=== PATIENT | male | born 1995 | race Caucasian/White ===

== ENCOUNTER 2018-01-28 16:38 | Emergency (ER) | payer OTHER ==
[2018-01-28] MEDS ORDERED: IPRATROPIUM/ALBUTEROL 0.5-2.5 MG/3 ML AMPUL NEB ONE (17:42)
[2018-01-28] MEDS ORDERED: LIDOCAINE 1% INJ-PF (10 MG/ML) 30 ML SDV NEB ONE (17:42)
[2018-01-28] MEDS ORDERED: AZITHROMYCIN 250 MG TABLET PO ONE (17:42)
--- NOTE | 2018-01-28 18:10 | RADIOLOGY REPORT (SQ) ---
EXAM DESCRIPTION: CHEST SINGLE VIEW COMPLETED DATE/TIME: 01/28/2018 5:57 pm REASON FOR STUDY: sob COMPARISON: 10/10/2015 EXAM PARAMETERS: NUMBER OF VIEWS: One view. TECHNIQUE: Single frontal radiographic view of the chest acquired. RADIATION DOSE: NA LIMITATIONS: None. FINDINGS: LUNGS AND PLEURA: No opacities, masses or pneumothorax. No pleural effusion. MEDIASTINUM AND HILAR STRUCTURES: No masses. Contour normal. HEART AND VASCULAR STRUCTURES: Heart normal in size. Normal vasculature. BONES: No acute findings. HARDWARE: None in the chest. OTHER: No other significant finding. IMPRESSION: NO ACUTE RADIOGRAPHIC FINDING IN THE CHEST. TECHNICAL DOCUMENTATION: JOB ID: [id number] [employer]- All Rights Reserved Reading location - IP/workstation name: [email or web address]
[2018-01-28] MEDS ORDERED: PREDNISONE 20 MG TABLET PO ONE (18:26)
[2018-01-28] MEDS ORDERED: ALBUTEROL SULFATE HFA (90 MCG/PUFF) 8 GM MDI (1 MDI/ER DISP) IH ONE (18:27)
--- NOTE | 2018-01-28 18:27 | ER Document Report ---
ED General - General Chief Complaint: Cough Stated Complaint: CHEST PAIN, COUGHING BLOOD Time Seen by Provider: 01/28/18 17:29 TRAVEL OUTSIDE OF THE [place] IN LAST 30 DAYS: No - HPI Patient complains to provider of: Cough productive sputum chest pain Notes: But states symptoms ongoing for the last 5 days. Patient states he is a smoker however stopped approximately 6 days ago. Patient denies any fevers or chills. Patient states also having some nasal congestion. Patient denies any recent travel or antibiotics. Resting comfortably upon my evaluation denies any travel to any thorough country states that the blood and sputum is mostly just streaks no large clots no history of recent incarceration no history of TB exposure - Related Data Allergies/Adverse Reactions: No Known Allergies Allergy (Verified 01/28/18 17:30) Past Medical History - Social History Smoking Status: Former Smoker Frequency of alcohol use: None Drug Abuse: None Family History: Reviewed & Not Pertinent Patient has suicidal ideation: No Patient has homicidal ideation: No Pulmonary Medical History: Reports: Hx Asthma, Hx Pneumonia - walking pneumonia at 3 Renal/ Medical History: Denies: Hx Peritoneal Dialysis - Immunizations Immunizations up to date: Yes Hx Diphtheria, Pertussis, Tetanus Vaccination: Yes Review of Systems - Review of Systems Constitutional: No symptoms reported EENT: No symptoms reported Cardiovascular: Chest pain Respiratory: Cough, Short of breath, Wheezing Gastrointestinal: No symptoms reported Genitourinary: No symptoms reported Male Genitourinary: No symptoms reported Musculoskeletal: No symptoms reported Skin: No symptoms reported Hematologic/Lymphatic: No symptoms reported Neurological/Psychological: No symptoms reported -: Yes All other systems reviewed and negative Physical Exam - Vital signs Vitals: Temp Pulse Resp BP Pulse Ox 98.5 F 74 16 126/71 H 98 01/28/18 16:59 01/28/18 16:59 01/28/18 16:59 01/28/18 16:59 01/28/18 16:59 Interpretation: Normal - General General appearance: Appears well, Alert - HEENT Head: Normocephalic, Atraumatic Eyes: Normal Pupils: PERRL - Respiratory Respiratory status: No respiratory distress Chest status: Tender - Palpation reproduces patient's pain Breath sounds: Rhonchi, Wheezing Chest palpation: Normal - Cardiovascular Rhythm: Regular Heart sounds: Normal auscultation Murmur: No - Abdominal Inspection: Normal Distension: No distension Bowel sounds: Normal Tenderness: Nontender Organomegaly: No organomegaly - Back Back: Normal, Nontender - Extremities General upper extremity: Normal inspection, Nontender, Normal color, Normal ROM , Normal temperature General lower extremity: Normal inspection, Nontender, Normal color, Normal ROM , Normal temperature, Normal weight bearing. No: Anselmo's sign - Neurological Neuro grossly intact: Yes Cognition: Normal Orientation: AAOx4 Melva Coma Scale Eye Opening: Spontaneous [place] Coma Scale Verbal: Oriented Melva Coma Scale Motor: Obeys Commands Melva Coma Scale Total: 15 Speech: Normal Motor strength normal: LUE, RUE, LLE, RLE Sensory: Normal - Psychological Associated symptoms: Normal affect, Normal mood - Skin Skin Temperature: Warm Skin Moisture: Dry Skin Color: Normal Course - Re-evaluation Re-evalutation: 01/28/18 21:36 Patient will likely with underlying bronchitis. We will start the patient on Z- Michael steroids bronchodilator therapy. Patient is understanding of treatment modality patient was discharged home - Vital Signs Vital signs: Temp Pulse Resp BP Pulse Ox 97.7 F 80 18 141/74 H 100 01/28/18 18:35 01/28/18 18:35 01/28/18 18:35 01/28/18 18:35 01/28/18 18:35 Discharge - Discharge Clinical Impression: Bronchitis Disposition: HOME, SELF-CARE Instructions: Bronchitis With Bronchospasm (Wheezing) ([facility]) Additional Instructions: Chest x-ray is negative for any pneumonia masses or significant pathology. Your symptoms are consistent with underlying bronchitis. Please use the inhaler that we gave you here in ER 2 puffs every 4 hours for shortness of breath. Please take steroids as prescribed please take antibiotic azithromycin as prescribed. Would also recommend honey to help out with your cough you can also try rggu-acf-[id number] cough medications return to ER symptoms worsen take Tylenol and Motrin for pain control. Prescriptions: Ibuprofen [Motrin 600 mg Tablet] 600 mg PO Q8HP PRN #21 tablet PRN Reason: Azithromycin [Zithromax] 250 mg PO DAILY #4 tablet Prednisone [Deltasone 20 mg Tablet] 3 tab PO DAILY 5 Days tablet Forms: Smoking Cessation Education
[2018-01-28 18:54] VITALS: BP 141/74
--- NOTE | 2018-01-28 22:01 | EKG REPORT ---
SEVERITY:- NORMAL ECG - SINUS RHYTHM : Confirmed by: Aleida Smith 28-Jan-2018 22:00:13
== END 2018-01-28 18:50 | disposition home or self-care (01) ==
LOC: ER 16:38
DX: J40 Bronchitis, not specified as acute or chronic (principal); R40.2412 Glasgow coma scale score 13-15, at arrival to emergency department; R05 Cough; R07.9 Chest pain, unspecified; Z87.891 Personal history of nicotine dependence
CPT/HCPCS: 93005; 94640; 99284; 71045; 93010; J3490 ×2; J7512; J7620

== ENCOUNTER 2018-10-30 09:13 | Emergency (ER) | payer OTHER ==
--- NOTE | 2018-10-30 10:12 | ER Document Report ---
ED Medical Screen (RME) - General Chief Complaint: General Weakness Stated Complaint: LOW TEMPERATURE Time Seen by Provider: 10/30/18 09:57 Notes: Patient is a 22-year-old male presents to the emergency department for low temperature. States yesterday he took his temperature because he "was feeling really foggy." States it was 94.1. States he laid around the house with lots of blankets on him and his temperature only came up to 95.0. Patient states he continues to feel "not all there." States he does have a history of migraines and feels like the headache is "starting." Rating it 1 out of 10. Patient is denying any URI symptoms, nausea, vomiting, shortness of breath, chest pain. GENERAL: Alert, interacts well. No acute distress. LUNGS: Clear to auscultation bilaterally, no wheezes, rales, or rhonchi. No respiratory distress. SKIN: Warm, dry, normal turgor. I have greeted and performed a rapid initial assessment of this patient. A comprehensive ED assessment and evaluation of the patient, analysis of test results and completion of the medical decision making process will be conducted by additional ED providers. I have specifically instructed the patient or family members with the patient to immediately return to any nursing staff should anything change in the patient's condition or with their chief complaint. This medical record was dictated with voice recognizing software. There may be grammatical, syntax errors that are unintended. TRAVEL OUTSIDE OF THE [place] IN LAST 30 DAYS: No - Related Data Allergies/Adverse Reactions: No Known Allergies Allergy (Verified 10/30/18 09:18) Past Medical History - Social History Chew tobacco use (# tins/day): No Frequency of alcohol use: Occasional Drug Abuse: Marijuana Family history: DM Pulmonary Medical History: Reports: Hx Asthma, Hx Pneumonia - walking pneumonia at 3 Renal/ Medical History: Denies: Hx Peritoneal Dialysis - Immunizations Immunizations up to date: Yes Hx Diphtheria, Pertussis, Tetanus Vaccination: Yes Physical Exam - Vital signs Vitals: Temp Pulse Resp BP Pulse Ox 97.4 F 89 24 H 142/62 H 99 10/30/18 09:24 10/30/18 09:24 10/30/18 09:24 10/30/18 09:24 10/30/18 09:24 Course - Vital Signs Vital signs: Temp Pulse Resp BP Pulse Ox 97.4 F 89 24 H 142/62 H 99 10/30/18 09:24 10/30/18 09:24 10/30/18 09:24 10/30/18 09:24 10/30/18 09:24
[2018-10-30 10:45] LABS: ABSOLUTE BASOPHILS # (AUTO) 0.1 10^3/uL (0.0-0.2); ABSOLUTE EOSINOPHILS # (AUTO) 0.2 10^3/uL (0.0-0.6); ABSOLUTE LYMPHOCYTES (AUTO) 1.7 10^3/uL (0.5-4.7); ABSOLUTE MONOCYTES (AUTO) 0.7 10^3/uL (0.1-1.4); ABSOLUTE NEUT (AUTO) 8.7 10^3/uL (1.7-8.2); BASOPHILS % (AUTO) 0.5 % (0-2); EOSINOPHILS % (AUTO) 1.5 % (0-6); HEMATOCRIT 45.9 % (37.9-51.0); HEMOGLOBIN 15.8 g/dL (13.5-17.0); LYMPHOCYTES % (AUTO) 15.3 % (13-45); MEAN CORPUSCULAR HGB CONC 34.3 g/dL (32.0-36.0); MEAN CORPUSCULAR VOLUME 91 fl (80-97); MONOCYTES % (AUTO) 6.4 % (3-13); PLATELET COUNT 190 10^3/uL (150-450); RED BLOOD COUNT 5.07 10^6/uL (4.35-5.55); RED CELL DISTRIBUTION WIDTH 12.5 % (11.5-14.0); SEGMENTED NEUTROPHILS % (AUTO) 76.3 % (42-78); TOTAL CELLS COUNTED % (AUTO) 100 %; WHITE BLOOD COUNT 11.4 10^3/uL (4.0-10.5)
[2018-10-30 10:57] LABS: APPEARANCE,URINE CLEAR; BILIRUBIN,URINE NEGATIVE (NEGATIVE); COLOR,URINE YELLOW; GLUCOSE, URINE NEGATIVE (NEGATIVE); KETONES,URINE TRACE mg/dL (NEGATIVE); LEUKOCYTE ESTERASE,URINE NEGATIVE (NEGATIVE); NITRITE,URINE NEGATIVE (NEGATIVE); PROTEIN,URINE NEGATIVE (NEGATIVE); URINE SPECIFIC GRAVITY 1.024; UROBILINOGEN,URINE NEGATIVE mg/dL (<2.0)
[2018-10-30 11:00] LABS: ALANINE AMINOTRANSFERASE 17 U/L (21-72); ALBUMIN 4.9 g/dL (3.5-5.0); ALCOHOL < 10 mg/dL (NONE DETECTED); ALKALINE PHOSPHATASE 70 U/L (38-126); ANION GAP 9 (5-19); ASPARTATE AMINO TRANSFERASE 21 U/L (17-59); BILIRUBIN,DIRECT 0.2 mg/dL (0.0-0.4); BILIRUBIN,TOTAL 0.4 mg/dL (0.2-1.3); BLOOD UREA NITROGEN 13 mg/dL (7-20); CALCIUM 9.7 mg/dL (8.4-10.2); CARBON DIOXIDE 28 mmol/L (22-30); CHLORIDE 103 mmol/L (98-107); GLUCOSE 96 mg/dL (75-110); POTASSIUM 4.8 mmol/L (3.6-5.0)
[2018-10-30 11:05] LABS: URINE AMPHETAMINES SCREEN NEGATIVE; URINE BARBITURATES SCREEN NEGATIVE; URINE BENZODIAZEPINES SCREEN NEGATIVE; URINE COCAINE SCREEN NEGATIVE; URINE MARIJUANA (THC) SCREEN UNCONFIRMED POSITIVE; URINE METHADONE SCREEN NEGATIVE; URINE PHENCYCLIDINE SCREEN NEGATIVE
--- NOTE | 2018-10-30 12:14 | ER Document Report ---
ED General - General Chief Complaint: General Weakness Stated Complaint: LOW TEMPERATURE Time Seen by Provider: 10/30/18 09:57 TRAVEL OUTSIDE OF THE [place] IN LAST 30 DAYS: No - HPI Notes: Patient is a 22-year-old male who presents to the emergency department for evaluation. He states that yesterday morning he felt poorly. He woke up just felt malaise, weakness. He denies any stefania pain. He states he has had some nasal drainage, felt slightly sore in his anterior neck. He does have a mild headache, which he rates a 1 out of 5. He states he gets these on occasion, but would have taken Tylenol. All day he felt like he could not get warm. He took his temperature and it was extremely low. He was putting on blankets and his temperature still would not come up. He had 8 episodes of nonbloody diarrhea yesterday. He denies any abnormal travel. He does not work in healthcare. No recent antibiotic therapy. Otherwise mildly runny nose. No cough. No vomiting. No cuts or rashes. - Related Data Allergies/Adverse Reactions: No Known Allergies Allergy (Verified 10/30/18 09:18) Past Medical History - General Information source: Patient - Social History Smoking Status: Current Every Day Smoker Chew tobacco use (# tins/day): No Frequency of alcohol use: Occasional Drug Abuse: Marijuana Family History: Reviewed & Not Pertinent, DM Patient has suicidal ideation: No Patient has homicidal ideation: No Pulmonary Medical History: Reports: Hx Asthma, Hx Pneumonia - walking pneumonia at 3 Renal/ Medical History: Denies: Hx Peritoneal Dialysis - Immunizations Immunizations up to date: Yes Hx Diphtheria, Pertussis, Tetanus Vaccination: Yes Review of Systems - Review of Systems Constitutional: See HPI EENT: See HPI Cardiovascular: No symptoms reported Respiratory: No symptoms reported Gastrointestinal: See HPI Genitourinary: No symptoms reported Musculoskeletal: No symptoms reported Skin: No symptoms reported Neurological/Psychological: No symptoms reported Physical Exam - Vital signs Vitals: Temp Pulse Resp BP Pulse Ox 97.4 F 89 24 H 142/62 H 99 10/30/18 09:24 10/30/18 09:24 10/30/18 09:24 10/30/18 09:24 10/30/18 09:24 - Notes Notes: This is a 22-year-old male who appears his stated age in no acute distress. Head is normal cephalic and atraumatic. Pupils are equal, round, reactive to light. TMs are pearly george with good light reflex. Oral mucosa is moist. He does have extensive posterior pharyngeal cobblestoning noted. No significant pharyngeal erythema. Neck is supple. He does have some shotty anterior cervical adenopathy with tenderness over bilateral sternocleidomastoid muscles. No meningeal signs. Heart is regular rate and rhythm, lungs are clear to oscillation bilaterally. Abdomen soft, nontender, normoactive bowel sounds. Skin is warm and dry. Patient is awake, alert, oriented x3. Cranial nerves II - XII are grossly intact without focal neurological deficits. Strength is plus 5 out of 5 bilateral upper and lower extremities. Sensation is intact. Reflexes symmetrical. Intact [id number], rapid alternating movements, [id number]. Course - Re-evaluation Re-evalutation: 10/30/18 12:11 Patient presents emergency department for evaluation. He has had some nasal drainage, low temperature, and diarrhea. He is primarily concerned about his low temperature. My suspicion is that he does have a viral infection. He does not have any signs of hypothyroidism. He has not had any unintentional weight gain, and has never been cold intolerant before yesterday. Because of this I did get an order blood cultures. These are pending at this time. Patient is to follow-up with primary care next week, return to the ED with worsening or new concerning symptoms of any sort. - Vital Signs Vital signs: Temp Pulse Resp BP Pulse Ox 97.4 F 89 24 H 142/62 H 99 10/30/18 09:24 10/30/18 09:24 10/30/18 09:24 10/30/18 09:24 10/30/18 09:24 - Laboratory Result Diagrams: 10/30/18 10:25 10/30/18 10:25 Laboratory results interpreted by me: 10/30/18 10/30/18 10/30/18 10:25 10:25 10:25 WBC 11.4 H Absolute Neutrophils 8.7 H ALT 17 L Urine Ketones TRACE H Discharge - Discharge Clinical Impression: Low body temperature, Viral syndrome Diarrhea Qualifiers: Diarrhea type: presumed infectious Qualified Code(s): R19.7 - Diarrhea, unspecified Condition: Stable Disposition: HOME, SELF-CARE Instructions: Acetaminophen, Viral Syndrome ([facility]), Diarrhea, Nonspecific ([facility]) Additional Instructions: Rest and stay well-hydrated. Blood cultures were obtained. If any bacteria grow you will be contacted. Follow-up with primary care next week. If you deve lop worsening or new concerning symptoms of any sort, return immediately to the emergency department for reevaluation.
[2018-10-30 12:49] VITALS: BP 122/68
--- NOTE | 2018-10-30 23:24 | EKG REPORT ---
SEVERITY:- NORMAL ECG - SINUS RHYTHM : Confirmed by: Aleida Smith 30-Oct-2018 23:23:51
== END 2018-10-30 12:50 | disposition home or self-care (01) ==
LOC: ER 09:13
DX: R68.0 Hypothermia, not associated with low environmental temperature (principal); B34.9 Viral infection, unspecified; R19.7 Diarrhea, unspecified; R53.1 Weakness; R09.89 Other specified symptoms and signs involving the circulatory and respiratory systems; M54.2 Cervicalgia; F17.200 Nicotine dependence, unspecified, uncomplicated
CPT/HCPCS: 36415; 80053; 80307; 81001; 85025; 87040; 93005; 93010; 99284

== ENCOUNTER 2019-01-03 17:17 | Emergency (ER) | payer SELFPAY ==
[2019-01-03] MEDS ORDERED: PREDNISONE 20 MG TABLET PO ONE (18:48)
[2019-01-03] MEDS ORDERED: IPRATROPIUM/ALBUTEROL 0.5-2.5 MG/3 ML AMPUL NEB ONE (18:48)
--- NOTE | 2019-01-03 18:52 | ER Document Report ---
ED Medical Screen (RME) - General Stated Complaint: COUGH Time Seen by Provider: 01/03/19 18:47 Notes: Patient presents with cough for the past 4 days with fever and shortness of breath. Patient is audibly wheezing with tachypnea. I have greeted and performed a rapid initial assessment of this patient. A comprehensive ED assessment and evaluation of the patient, analysis of test results and completion of the medical decision making process will be conducted by additional ED providers. TRAVEL OUTSIDE OF THE [place] IN LAST 30 DAYS: No - Related Data Allergies/Adverse Reactions: No Known Allergies Allergy (Verified 10/30/18 09:18) Past Medical History - Social History Family history: DM Pulmonary Medical History: Reports: Hx Asthma, Hx Pneumonia - walking pneumonia at 3 Renal/ Medical History: Denies: Hx Peritoneal Dialysis Psychiatric Medical History: Reports: Hx Attention Deficit Hyperactivity Disorder Past Surgical History: Reports: Hx Tonsillectomy - and adenoids - Immunizations Immunizations up to date: Yes Hx Diphtheria, Pertussis, Tetanus Vaccination: Yes Physical Exam - Respiratory Respiratory status: Tachypnea Breath sounds: Nonproductive cough, Wheezing
[2019-01-03] MEDS: ALBUTEROL SULFATE 0.083% NEB 2.5 MG/3 ML AMPUL NEB SCH ×2 (19:01→19:14)
--- NOTE | 2019-01-03 20:08 | RADIOLOGY REPORT (SQ) ---
EXAM DESCRIPTION: CHEST 2 VIEWS COMPLETED DATE/TIME: 01/03/2019 7:37 pm REASON FOR STUDY: cough, sob COMPARISON: 01/28/2018 EXAM PARAMETERS: NUMBER OF VIEWS: two views TECHNIQUE: Digital Frontal and Lateral radiographic views of the chest acquired. RADIATION DOSE: NA LIMITATIONS: none FINDINGS: LUNGS AND PLEURA: No opacities, masses or pneumothorax. No pleural effusion. MEDIASTINUM AND HILAR STRUCTURES: No masses or contour abnormalities. HEART AND VASCULAR STRUCTURES: Heart normal size. No evidence for failure. BONES: No acute findings. HARDWARE: None in the chest. OTHER: No other significant finding. IMPRESSION: NO ACUTE RADIOGRAPHIC FINDING IN THE CHEST. TECHNICAL DOCUMENTATION: JOB ID: [id number] [employer]- All Rights Reserved Reading location - IP/workstation name: [email or web address]
[2019-01-03 20:37] VITALS: BP 137/73
[2019-01-03] MEDS ORDERED: ALBUTEROL SULFATE HFA (90 MCG/PUFF) 8 GM MDI (1 MDI/ER DISP) IH ONE (20:39)
--- NOTE | 2019-01-03 20:39 | ER Document Report ---
ED Respiratory Problem - General Chief Complaint: Shortness Of Breath Stated Complaint: COUGH Time Seen by Provider: 01/03/19 18:47 Notes: Patient is a 23-year-old male presents to the emergency department for generalized cough, congestion, respiratory distress for the last 4 days. Patient voices when he was a child he did have asthma. States he has not had to use albuterol inhalers for "a while now." Patient states his will try [id number] Mucinex without relief. Patient's denying any fevers. Initial RME note noted patient was tachypneic with audible wheezing noted. Upon my assessment patient voices he overall feels a lot better after treatments. TRAVEL OUTSIDE OF THE [place] IN LAST 30 DAYS: No - Related Data Allergies/Adverse Reactions: No Known Allergies Allergy (Verified 10/30/18 09:18) Past Medical History - General Information source: Patient - Social History Smoking Status: Current Every Day Smoker Chew tobacco use (# tins/day): No Frequency of alcohol use: None Drug Abuse: None Family History: Reviewed & Not Pertinent, DM Patient has suicidal ideation: No Patient has homicidal ideation: No Pulmonary Medical History: Reports: Hx Asthma, Hx Pneumonia - walking pneumonia at 3 Renal/ Medical History: Denies: Hx Peritoneal Dialysis Psychiatric Medical History: Reports: Hx Attention Deficit Hyperactivity Disorder Past Surgical History: Reports: Hx Tonsillectomy - and adenoids - Immunizations Immunizations up to date: Yes Hx Diphtheria, Pertussis, Tetanus Vaccination: Yes Review of Systems - Review of Systems Constitutional: denies: Fever EENT: See HPI Cardiovascular: See HPI Respiratory: See HPI Gastrointestinal: No symptoms reported Genitourinary: No symptoms reported Male Genitourinary: No symptoms reported Musculoskeletal: No symptoms reported Skin: No symptoms reported Hematologic/Lymphatic: No symptoms reported Neurological/Psychological: No symptoms reported Physical Exam - Vital signs Vitals: Temp Pulse Resp BP Pulse Ox 97.6 F 83 24 H 137/69 H 97 01/03/19 18:49 01/03/19 18:49 01/03/19 18:49 01/03/19 18:49 01/03/19 18:49 - Notes Notes: GENERAL: Alert, interacts well. No acute distress. HEAD: Normocephalic, atraumatic. EYES: Pupils equal, round, and reactive to light. Extraocular movements intact. ENT: Oral mucosa moist, tongue midline. Nares patent, swollen turbinates noted bilaterally, TM's intact, nonerythematous, nonbulging bilaterally. Pharynx minorly erythematous without palatal petechiae. NECK: Full range of motion. Supple. Trachea midline. No lymphadenopathy appreciated LUNGS: Clear to auscultation bilaterally, no wheezes, rales, or rhonchi. No respiratory distress. HEART: Regular rate and rhythm. No murmur ABDOMEN: Soft, non-tender. Non-distended. Bowel sounds present in all 4 quadrants. EXTREMITIES: Moves all 4 extremities spontaneously. No edema, normal radial and dorsalis pedis pulses bilaterally. No cyanosis. BACK: no cervical, thoracic, lumbar midline tenderness. No saddle anesthesia, normal distal neurovascular exam. NEUROLOGICAL: Alert and oriented x3. Normal speech. cranial nerves II through XII grossly intact PSYCH: Normal affect, normal mood. SKIN: Warm, dry, normal turgor. No rashes or lesions noted. Course - Re-evaluation Re-evalutation: 01/03/19 20:35 Chest X-Ray 01/03/19 18:50 IMPRESSION: NO ACUTE RADIOGRAPHIC FINDING IN THE CHEST. Patient was treated with breathing treatments and steroids by [facility] provider. Upon my assessment patient is clear lung sounds in all don. Patient voices he overall feels a lot better. Discussed continued use of albuterol inhalers and steroids. Discussed close follow-up at [facility] as patient voices he is uninsured. At this time will discharge with return precautions and follow-up recommendations. Verbal discharge instructions given a the bedside and opportunity for questions given. Medication warnings reviewed. Patient is in agreement with this plan and has verbalized understanding of return precautions and the need for primary care follow-up in the next 24-72 hours. This medical record was dictated with voice recognizing software. There may be grammatical, syntax errors that are unintended. - Vital Signs Vital signs: Temp Pulse Resp BP Pulse Ox 97.6 F 83 24 H 137/69 H 97 01/03/19 18:49 01/03/19 18:49 01/03/19 18:49 01/03/19 18:49 01/03/19 18:49 Discharge - Discharge Clinical Impression: Bronchospasm Upper respiratory infection Qualifiers: URI type: unspecified viral URI Qualified Code(s): J06.9 - Acute upper respiratory infection, unspecified Condition: Stable Disposition: HOME, SELF-CARE Instructions: Viral Syndrome ([facility]), Upper Respiratory Illness ([facility]), Bronchospasm ([facility]) Additional Instructions: As we discussed you have been seen and treated in the emergency department for an upper respiratory infection and wheezing. Your symptoms are likely caused by a viral illness. Viruses do not respond to antibiotics. We treat them symptomatically. This means take mnkp-oib-[id number] Tylenol, Motrin for generalized body aches or fevers. Please use your albuterol inhaler every 4 hours as needed for respiratory distress. Please also make sure taking steroids as prescribed. I have provided phone numbers for [facility], [facility]. Please follow-up at 1 of these clinics in the next 24 to 48 hours. Please return to the emergency room for any concerns. Prescriptions: Prednisone [Deltasone 20 mg Tablet] 3 tab PO DAILY 5 Days tablet Albuterol Sulfate [Proair HFA Inhalation Aerosol 8.5 gm MDI] 2 puff IH Q4H PRN #1 mdi PRN Reason: Forms: Return to Work Referrals: [facility] [Provider Group] - Follow up as needed [facility] [Provider Group] - Follow up as needed
== END 2019-01-03 20:53 | disposition home or self-care (01) ==
LOC: ER 17:17
DX: J06.9 Acute upper respiratory infection, unspecified (principal); J98.01 Acute bronchospasm; R06.02 Shortness of breath
CPT/HCPCS: 94640; 99283; 71046; J7512; J3490; J7620